=== PATIENT | female | born 1935 | race Caucasian/White ===

== ENCOUNTER → 2023-10-03 11:48 | Outpatient (REF) | payer OTHER, SELFPAY | LOC: HWRAD 11:48 | PROVIDERS: ATTENDING PHYSICIAN Internal Medicine Geriatric Medicine | DX: M54.50 Low back pain, unspecified (principal); G89.29 Other chronic pain; Z98.890 Other specified postprocedural states | CPT/HCPCS: 72110 ==

== ENCOUNTER → 2023-10-27 10:07 | Outpatient (REF) | payer OTHER, SELFPAY | LOC: HWWDC 10:07 | PROVIDERS: ATTENDING PHYSICIAN Internal Medicine Geriatric Medicine | DX: Z12.31 Encounter for screening mammogram for malignant neoplasm of breast (principal) | CPT/HCPCS: 77063; 77067 ==